=== PATIENT | male | born 1935 | race Caucasian/White ===

== ENCOUNTER 2017-02-24 11:43 | Emergency (ER) | payer MEDICARE, BC ==
--- NOTE | ~2017-02-24 | CT4 ---
[facility] A Service of [facility] & [facility] RADIOLOGY TEXT RESULTS PATIENT: TALIB AYALA LOCATION: SED : 36 UNIT #: [id number] AGE: [address]: Belkys Womack MD SEX: M ORDER DR: [id number] [address] [address] [id number] MR#: [id number] Acc #: [id number] NAME: TALIB AYALA. : 1935 SEX: M STUDY DATE/TIME: 02/24/2017 UNIT: SED ROOM: STUDY DESCRIPTION: CT Abd and Pelv Wo Cont Attending Physician: Belkys Womack M.D. Ordering Physician: Belkys Womack M.D. Primary Care Physician: Supriya Umana M.D. MEDICAL IMAGING REPORT This report is preliminary unless electronic signature is present. EXAM CT abdomen and pelvis without contrast, 02/24/2017, 1257 hours. CLINICAL HISTORY 81-year-old man with shortness of air and periumbilical pain for 3 days, worst pain he has had in 19 years. History of prior appendectomy. COMPARISON CT abdomen, 04/24/2014. TECHNIQUE Helical noncontrasted images were obtained from the lung bases through the pubic symphysis with oral contrast only. Sagittal and coronal reconstructions were performed. Total exam DLP 1491 mGy-cm. This CT exam was performed with one or more of the following radiation dose reduction techniques: automatic exposure control, adjustment of mA and/or kV according to patient size, and iterative reconstruction. FINDINGS Images through the lung bases demonstrate stable emphysematous and linear fibrotic densities. There is no acute pulmonary density or pleural effusion. There is a pacer device in the heart. The distal esophagus is normal. Noncontrasted images through the abdomen demonstrate a normal appearance to the liver, spleen, pancreas, gallbladder and bile ducts. The adrenal glands are normal. The kidneys appear slightly small with cortical thinning. There are vascular calcifications of the aorta and renal arteries right greater than left. There is no renal or ureteral stone. The bladder is decompressed. The stomach is fairly well opacified with contrast. There is no wall thickening. The small bowel is opacified proximally. There is no small STS. [facility] A Service of [facility] & [facility] RADIOLOGY TEXT RESULTS PATIENT: TALIB AYALA LOCATION: SED : 36 UNIT #: [id number] AGE: [address]: Belkys Womack MD SEX: M ORDER DR: bowel distension or small bowel wall thickening. The distal small bowel is unopacified but appears normal. The appendix is normal. The colon is unopacified. There is no colonic distension. There are colonic diverticula in the descending colon and sigmoid colon without CT evidence of wall thickening. Images through the lower pelvis are degraded by streak artifact from hardware at both hips. It is difficult to assess the bladder and prostate. There is no rectal distension or rectal wall thickening. A penile implant is unchanged. There is a small fat density left inguinal hernia. Bone window images demonstrate hardware at the lumbosacral junction. There are compression deformities throughout the lumbar spine with some further vertebral body height loss at L4, L2 since the prior exams. IMPRESSION 1. No renal or ureteral calculi. There is no wall thickening in the small bowel or colon. Patient has uncomplicated diverticulosis of the descending colon and sigmoid colon. 2. Previous area of inflammatory change in the central mesentery on the CT of 04/24/2014, is no longer seen. 3. Normal appendix. 4. Images through the lower pelvis are degraded by streak artifact at both hips. No definite abnormalities are seen. 5. Patient has had fusion at L5-S1. There are multilevel compression deformities throughout the lumbar spine with some vertebral body height further loss since and 04/24/2014. None of these fractures is new however. Dictated by... Marifer Duncan M.D. THIS IS AN ELECTRONICALLY VERIFIED REPORT Marifer Duncan M.D. at 02/24/2017 5:38 PM Jermain TD: 02/24/2017 16:14 JOB #: [id number] MEDICAL IMAGING REPORT Page 1 of 1
[~2017-02-24 11:43] MED LIST: ACETAMINOPHEN PO; ACTOS PO; ALBUTEROL2.5 MG/0.5 IH; ALPRAZOLAM; AMARYL PO; AMARYL2 MG PO; ASPERDRINK81 MG PO; ASPIRIN; ASPIRIN81 M1 PO; ASPIRIN81 M2 PO; ASPIRIN81 MG PO; BACITRACIN15 GM TP; BENICAR HCT 40-1 TA2 PO; BROVANA15 MCG/2 M IH; BUDESONIDE0.5 MG/2 M IH; CELEBREX; CLONAZEPAM0.5 MG PO; DIOVAN; DIOVAN HCT 160/1 TAB PO; DIOVAN HCT 1601 EACH PO; DIOVAN PO; DIOVAN160 MG; GAS-X80 MG PO; GLIMEPIRIDE1 M1 PO; HYDRALAZINE HCL25 MG PO; HYDROCHLOROTH12.5 M1 PO; K-DUR20 ME1 PO; KCL; KCL PO; KLONOPIN PO; KLONOPIN0.5 MG PO; LASIX PO; LEVAQUIN PO; MEDROL DOSEPAK4 MG PO; METAMUCIL0.52 G; METAMUCIL0.52 G PO; METAMUCIL1 PKT PO; NON-ASA500 M1 PO; NORCO 10-325 TA1 TAB PO; PERCOCET 5-3251 TAB PO; PREDNISONE PO; TOPROL XL 50 MG50 MG; TUDORZA PRESS400 MCG IH; ULTRAM PO; VICODIN 5/1 TAB 5/50 PO; VICODIN PO; XANAX0.5 M1 PO; ZANTAC; ZANTAC PO; ZANTAC150 MG PO
[2017-02-24 12:04] LABS: BASOPHIL# 0.1 X10e3 (0-0.3); BASOPHIL% 1.1 % (0-2.5); EOSINOPHIL# 0.3 X10e3 (0-0.7); EOSINOPHIL% 3.8 % (0.0-7.0); HEMATOCRIT 33.7 % (38.0-50.0); HEMOGLOBIN 10.6 gm/dL (13.0-16.0); LYMPHOCYTE# 1.4 X10e3 (1.0-3.5); LYMPHOCYTE% 19.7 % (17.0-45.0); MEAN CELL VOLUME 86.5 FL (83-96); MEAN CORPUSCULAR HEMOGLOBIN 27.3 PG (28-34); MEAN CORPUSCULAR HGB CONC 31.5 g/dL (30-36); MEAN PLATELET VOLUME 7.8 FL (6.5-11.5); MONOCYTE# 0.5 X10e3 (0-1.0); MONOCYTE% 7.1 % (3.0-12.0); NEUTROPHIL% 68.3 % (40-75); PLATELET COUNT 202 X10e3 (140-420); RED CELL DISTRIBUTION WIDTH 17.8 % (11.0-15.5); WHITE BLOOD COUNT 7.3 X10e3 (4.0-10.5)
[2017-02-24 12:06] LABS: DIFF IND NO
[2017-02-24 12:13] LABS: INR 1.1; PROTHROMBIN TIME (PATIENT) 12.5 SECONDS (9.5-12.4)
[2017-02-24 12:20] LABS: PARTIAL THROMBOPLASTIN TIME 29.9 SECONDS (25.6-38.1)
[2017-02-24 12:22] LABS: ALBUMIN SERUM 3.7 g/dL (3.5-5.0); BILIRUBIN, DIRECT 0.1 mg/dL (0.0-0.2); BILIRUBIN,INDIRECT 0.2 mg/dL (0.0-0.9); BILIRUBIN,TOTAL 0.3 mg/dL (0.2-2.0); CALCIUM SERUM 8.8 mg/dL (8.4-10.2); GLOM FILT RATE Estimated 30.6 mL/min (>60); POTASSIUM 4.6 mmol/L (3.5-5.1); PROTEIN TOTAL SERUM 7.8 g/dL (6.0-8.3)
== END 2017-02-24 14:32 | disposition home or self-care (01) ==
LOC: SED 11:43
PROVIDERS: Student in an Organized Health Care Education/Training Program
DX: K42.9 Umbilical hernia without obstruction or gangrene (principal); K59.00 Constipation, unspecified; J44.9 Chronic obstructive pulmonary disease, unspecified; Z90.49 Acquired absence of other specified parts of digestive tract; Z88.0 Allergy status to penicillin; Z88.8 Allergy status to other drugs, medicaments and biological substances; Z79.899 Other long term (current) drug therapy
CPT/HCPCS: 36415; 74176; 80048; 80076; 85025; 85610; 85730; 96374; 96375; 99284; J2270; J2405